=== PATIENT | female | born 1950 | race Caucasian/White ===

== ENCOUNTER 2020-12-21 14:14 | Observation (INO) | payer MEDICARE ==
[2020-12-21 14:58] LABS: #Eosinphils 0.2 10x3/uL (0.0-0.5); #Monocytes 0.5 10x3/uL (0.0-1.1); #Neutrophils 4.4 10x3/uL (1.5-8.4); %Basophils 0.4 % (0.0-2.0); %Eosinophils 2.5 % (0.0-6.0); %Lymphocytes 30.8 % (18.0-47.0); %Monocytes 6.4 % (0.0-10.0); %Neutrophils 59.6 % (40.0-75.0); Hemoglobin 14.1 g/dL (12.0-15.5); Mean Corpuscular HGB CONC 33.3 g/dL (32.0-36.0); Mean Corpuscular Hemoglobin 28.6 pg (27.0-33.0); Mean Platelet Volume 9.5 fl (7.4-10.4); Platelet Count 348 10x3/uL (150-450); RBC Distribution Width 13.2 % (11.5-14.5); Red Blood Cell (RBC) Count 4.93 10x6/uL (3.90-5.03); White Blood Cell (WBC) Count 7.3 10x3/uL (3.5-10.5)
[2020-12-21 15:05] LABS: Anion Gap 16 mmol/L (10-20); BUN (Urea Nitrogen) 9 mg/dL (9.8-20.1); Calc. Creatinine Clearance 0 mL/min (70-130); Calcium 9.7 mg/dL (7.8-10.44); Carbon Dioxide 25 mmol/L (23-31); Chloride 105 mmol/L (98-107); Glucose 123 mg/dL (80-115); PTT 25.2 sec (22.0-33.0); Potassium 3.7 mmol/L (3.5-5.1); Prothrombin Time 10.9 sec (9.5-12.1); Sodium 142 mmol/L (136-145)
[2020-12-21] MEDS ORDERED: Ascorbic Acid 500 mg Chewable Tablet ONE (15:23)
[2020-12-21] MEDS ORDERED: Aspirin 325 MG TAB ONE (15:23)
[2020-12-21 15:59] LABS: SARS-CoV-2 NAA Rapid Test Not Detected (NotDetected)
[2020-12-21] MEDS ORDERED: Lidocaine 1% (PF) 30 ML VIAL ONE (16:04)
[2020-12-21] MEDS ORDERED: Fentanyl 250 MCG/5 ML VIAL ONE (16:05)
[2020-12-21] MEDS ORDERED: Nitroglycerin 50 MG/250 ML BOT 250 ML ONE (16:05)
[2020-12-21] MEDS ORDERED: Heparin 10,000 UNITS/ 10 ML VIAL ONE (16:05)
[2020-12-21] MEDS ORDERED: Midazolam HCl 2 mg/2 ml Vial ONE (16:06)
[2020-12-21] MEDS ORDERED: Fentanyl 100 MCG/2 ML VIAL ONE (16:10)
[2020-12-21] MEDS ORDERED: Prasugrel 10 MG TAB ONE ×3 (16:58→17:49)
[2020-12-21] MEDS ORDERED: Acetaminophen/Codeine 30-300mg Tablet PO PRN ×2 (17:29)
[2020-12-21] MEDS ORDERED: Sodium Chloride 0.9% 1,000 ML IV SCH (17:30)
[2020-12-21] MEDS ORDERED: Atorvastatin Calcium 40 MG TAB PO SCH (21:00)
[2020-12-21] MEDS ORDERED: Lisinopril 20 MG TAB PO SCH (21:00)
[2020-12-21] MEDS ORDERED: Amlodipine 5 MG TAB PO SCH (21:00)
[2020-12-21] MEDS: Famotidine 20 MG TAB PO SCH (21:19)
[2020-12-22 00:55] VITALS: BMI 26.5
[2020-12-22 05:16] LABS: #Eosinphils 0.2 10x3/uL (0.0-0.5); #Monocytes 0.7 10x3/uL (0.0-1.1); #Neutrophils 5.5 10x3/uL (1.5-8.4); %Basophils 0.3 % (0.0-2.0); %Lymphocytes 27.6 % (18.0-47.0); %Monocytes 7.5 % (0.0-10.0); %Neutrophils 62.4 % (40.0-75.0); Hemoglobin 13.6 g/dL (12.0-15.5); Mean Corpuscular HGB CONC 33.4 g/dL (32.0-36.0); Mean Corpuscular Hemoglobin 28.9 pg (27.0-33.0); Mean Corpuscular Volume 86.4 fl (81.6-98.3); Mean Platelet Volume 9.8 fl (7.4-10.4); Platelet Count 288 10x3/uL (150-450); RBC Distribution Width 13.2 % (11.5-14.5); Red Blood Cell (RBC) Count 4.71 10x6/uL (3.90-5.03); White Blood Cell (WBC) Count 8.9 10x3/uL (3.5-10.5)
[2020-12-22 05:37] LABS: ALT (SGPT) 16 U/L (8-55); AST (SGOT) 21 U/L (5-34); Albumin 4.3 g/dL (3.4-4.8); Alkaline Phosphatase 50 U/L (40-110); Anion Gap 15 mmol/L (10-20); BUN (Urea Nitrogen) 10 mg/dL (9.8-20.1); Bilirubin, Total 0.5 mg/dL (0.2-1.2); Calc. Creatinine Clearance 88 mL/min (70-130); Calcium 9.2 mg/dL (7.8-10.44); Carbon Dioxide 24 mmol/L (23-31); Chloride 106 mmol/L (98-107); Globulin 2.2 g/dL (2.4-3.5); Glucose 128 mg/dL (80-115); Potassium 3.9 mmol/L (3.5-5.1); Protein, Total 6.5 g/dL (5.8-8.1); Sodium 141 mmol/L (136-145)
[2020-12-22] MEDS ORDERED: Levothyroxine Sodium 75 MCG TAB PO SCH (06:00)
[2020-12-22] MEDS: Famotidine 20 MG TAB PO SCH (08:52)
[2020-12-22] MEDS ORDERED: Prasugrel 10 MG TAB PO SCH (09:00)
[2020-12-22] MEDS ORDERED: Ubidecarenone 50 MG CAP PO SCH (09:00)
[2020-12-22] MEDS ORDERED: Aspirin 81 mg Enteric Coated Tablet PO SCH (09:00)
[2020-12-22 11:31] VITALS: TEMP 97.4
[2020-12-22 11:32] VITALS: BP 142/65
== END 2020-12-22 14:21 | disposition home or self-care (01) ==
LOC: CSHCCL 14:14 → CSHTELE 18:10
PROVIDERS: ADMIT Specialist; ATTEND Specialist
DX: I25.10 Atherosclerotic heart disease of native coronary artery without angina pectoris (principal); I10 Essential (primary) hypertension; E78.5 Hyperlipidemia, unspecified; E11.9 Type 2 diabetes mellitus without complications; Z95.5 Presence of coronary angioplasty implant and graft; Z79.899 Other long term (current) drug therapy; I25.2 Old myocardial infarction; G47.30 Sleep apnea, unspecified; E03.9 Hypothyroidism, unspecified; Z90.49 Acquired absence of other specified parts of digestive tract; Z90.710 Acquired absence of both cervix and uterus; Z20.822 Contact with and (suspected) exposure to COVID-19
CPT/HCPCS: 80048; 80053; 85025 ×2; 85610; 85730; 92978; 92979; 93005; 93458; 97139; C1753; C1887; C9600; U0002; 92928; 93010; 99152; 99153; G0378; J1644; J2001; J2250; J3010; J7050

== ENCOUNTER 2023-08-19 19:09 | Emergency (ER) | payer MEDICARE ==
[2023-08-19] MEDS ORDERED: Acetaminophen 500 MG TAB ONE (20:14)
== END 2023-08-19 20:45 | disposition home or self-care (01) ==
LOC: CSHERS 19:09
DX: S00.03XA Contusion of scalp, initial encounter (principal); I10 Essential (primary) hypertension; E11.9 Type 2 diabetes mellitus without complications; E78.00 Pure hypercholesterolemia, unspecified; Z79.899 Other long term (current) drug therapy; Z79.84 Long term (current) use of oral hypoglycemic drugs; Z55.6 Problems related to health literacy; W07.XXXA Fall from chair, initial encounter
CPT/HCPCS: 70450; 72125; 72170